=== PATIENT | male | born 1955 | race Caucasian/White ===

== ENCOUNTER 2023-01-03 09:31 | Day surgery (SDC) | payer OTHER ==
[~2023-01-03] VITALS: Ht 182.9 cm; Wt 99.5 kg
[2023-01-03] MEDS ORDERED: LISI20 (09:48)
[2023-01-03] MEDS ORDERED: MULTIPLE VITAM1 EACH (09:48)
[2023-01-03] MEDS ORDERED: FISH OIL 1,0001 EA10 (09:49)
[2023-01-03] MEDS ORDERED: COQ-10100 MG (09:49)
[2023-01-03] MEDS ORDERED: [UNRECOGNIZED DRUG - OTHER] (09:49)
[2023-01-03] MEDS ORDERED: NIAC500 (09:50)
[2023-01-03] MEDS ORDERED: OMEGA-3 + VITA200 ML (09:51)
[2023-01-03 12:04] VITALS: BP 151/95
--- NOTE | 2023-01-03 12:07 | NUR ---
01/03/23 1207 Delmy Rios IV DC'D WNL AT 1145. CATH INTACT. PT TOLERATED IV DC WELL.
== END 2023-01-03 11:55 | disposition home or self-care (01) ==
LOC: ORSCSDS 09:31
PROVIDERS: Specialist
PROC: 0DBK8ZX Excision of Ascending Colon, Via Natural or Artificial Opening Endoscopic, Diagnostic (ICD-10-PCS; principal; 2023-01-03 11:00)
DX: Z12.11 Encounter for screening for malignant neoplasm of colon (principal); R19.5 Other fecal abnormalities; D12.2 Benign neoplasm of ascending colon; K64.8 Other hemorrhoids; K57.30 Diverticulosis of large intestine without perforation or abscess without bleeding; E78.5 Hyperlipidemia, unspecified; I10 Essential (primary) hypertension; Z68.30 Body mass index [BMI] 30.0-30.9, adult; Z79.899 Other long term (current) drug therapy
CPT/HCPCS: 88305; J2704; J7120

== ENCOUNTER → 2024-09-25 | Outpatient (CLI) | payer OTHER ==
[~2024-09-25] MED LIST: COQ-10100 MG; FISH OIL 1,0001 EA10; LISI20; MULTIPLE VITAM1 EACH; NIAC500; OMEGA-3 + VITA200 ML; [UNRECOGNIZED DRUG - OTHER]
[2024-09-25 13:43] LABS: Alanine Aminotransfer (ALT/SGP 34 U/L (12-78); Albumin, Blood 4.0 g/dL (3.4-5.0); Albumin/Globulin Ratio 1.2 (0.8-1.8); Anion Gap 5 mmol/L (3-11); Aspartate Aminotrans (AST/SGOT 23 U/L (12-37); Bilirubin, Total 0.6 mg/dL (0.1-1.0); Blood Urea Nitrogen 24 mg/dL (8-24); CHOL/HDL RATIO 3.1; CO2, Blood 30 mmol/L (21-32); Calcium, Blood 9.3 mg/dL (8.5-10.1); Chloride, Blood 106 mmol/L (98-108); Cholesterol 122 mg/dL (50-200); Creatinine, Blood 1.40 mg/dL (0.60-1.20); Globulin, Blood 3.4 g/dL (2.2-4.0); Glucose, Blood 107 mg/dL (70-99); HDL Cholesterol 39 mg/dL (>39); LDL/HDL RATIO 1.6; Low Density Lipoprotein Chol 62 mg/dL (0-110); Potassium, Blood 4.7 mmol/L (3.5-5.5); Sodium, Blood 136 mmol/L (136-145); Total Protein, Blood 7.4 g/dL (6.4-8.2); Triglycerides 103 mg/dL (30-160); Very Low Density Lipoprot Chol 20 mg/dL (6-32)
== END | disposition home or self-care (01) ==
LOC: LAB SHORT 11:47 → LAB 11:47
PROVIDERS: Family Medicine
DX: E78.2 Mixed hyperlipidemia (principal)
CPT/HCPCS: 80053; 80061

== ENCOUNTER 2025-01-23 08:26 | Day surgery (SDC) | payer OTHER ==
[~2025-01-23] VITALS: Ht 182.9 cm; Wt 103.5 kg
[~2025-01-23 08:26] MED LIST changes: +Balanced Salt Epinephrine Irrigation Solution 500 mL IR SCH; +Moxifloxacin HCL 0.5 MG/0.1 ML 0.4MLSYR LEFTEYE SCH; +Ondansetron 4 MG SoluTab MM PRN; +PHENYLEPHRINE\\TROPICAMIDE\\TETRACAINE OPHTHALMIC DILATING SOLN LEFTEYE PRN; +Povidone-Iodine 450 DROP/30 ML Solution LEFTEYE SCH; +Povidone-Iodine 450 DROP/30 ML Solution ONE; +Tetracaine HCl/Pf 0.5% Opth Soln 4 ml ONE; +Triamcinolone Inj Susp 40 MG / ML 1ML Vial INJ SCH; +Triamcinolone Inj Susp 40 MG / ML 1ML Vial ONE
[2025-01-23] MEDS ORDERED: ROSUVASTATIN CAL5 MG PO (08:56)
--- NOTE | 2025-01-23 09:39 | NUR ---
01/23/25 0939 Radha Trevino 186/105 182/106 BP ELEVATED, SURGEON AWARE, NO FURTHER ORDERS GIVEN 66 100% 18
[2025-01-23 09:54] VITALS: BP 160/93
--- NOTE | 2025-01-23 09:58 | NUR ---
01/23/25 0958 Rhonda Kraus RN ASSISTED PT TO RECLINER. VSS. DENIES PAIN/DIZZINESS/NAUSEA AT THIS TIME.
== END 2025-01-23 10:06 | disposition home or self-care (01) ==
LOC: ORSCSDS 08:26
PROVIDERS: Ophthalmology
PROC: 08RK3JZ Replacement of Left Lens with Synthetic Substitute, Percutaneous Approach (ICD-10-PCS; principal; 2025-01-23 10:00)
DX: H25.812 Combined forms of age-related cataract, left eye (principal)
CPT/HCPCS: A9270; J3301; V2632